=== PATIENT | female | born 1945 | race Caucasian/White ===

== ENCOUNTER 2019-09-11 13:56 | Inpatient (IN) | payer MEDICARE ==
[~2019-09-11] VITALS: Ht 160 cm; Wt 66.2 kg
[~2019-09-11 13:56] MED LIST: AMBEREN; BONIVA150 MG; CALCIUM 600 +1 EAC8
[2019-09-11 14:06] VITALS: BP 188/135
[2019-09-11 14:31] LABS: HEMATOCRIT 53.3 % (37.0-47.0); HEMOGLOBIN 18.1 gm/dL (12.0-15.0); MCH 33.2 pg (26.0-34.0); MCV 97.7 fL (80.0-100.0); NUCLEATED RBCS 0 /100WBC; PLATELET COUNT* 111 thou/uL (150-400); RBC 5.46 mil/uL (4.20-5.00); RDW-CV 15.2 % (10.5-14.5); WBC 8.7 thou/uL (4.0-11.0)
[2019-09-11 14:38] LABS: INR 1.2; PROTIME 12.7 Seconds (9.20-11.50)
[2019-09-11 14:44] LABS: INFLUENZA A ANTIGEN Negative (Negative); INFLUENZA B ANTIGEN Negative (Negative)
[2019-09-11 14:52] LABS: CREATININE 1.1 mg/dL (0.6-1.3); POTASSIUM 4.2 mmol/L (3.5-5.1)
[2019-09-11 14:56] LABS: TOTAL BILIRUBIN 1.2 mg/dL (<0.1-1.0); TOTAL PROTEIN 7.8 g/dL (6.4-8.2)
[2019-09-11 15:00] LABS: ABSOLUTE LYMPHOCYTES 0.7 thou/uL (0.8-5.3); ABSOLUTE MONOCYTES 0.3 thou/uL (0.0-1.2); ABSOLUTE NEUTROPHILS 7.7 thou/uL (1.6-8.1); PLATELET ESTIMATE ADEQUATE
[2019-09-11 15:00] LABS: URINE BLOOD 1+ (Negative); URINE CLARITY CLEAR; URINE COLOR YELLOW; URINE GLUCOSE-RANDOM NEGATIVE (Negative); URINE KETONES 1+ (Negative); URINE LEUKOCYTES-REFLEX NEGATIVE (Negative); URINE NITRITE-REFLEX NEGATIVE (Negative); URINE PROTEIN 2+ (Negative); URINE SPECIFIC GRAVITY >= 1.030 (1.005-1.030); URINE UROBILINOGEN 0.2 E.U./dl (0.2-1.0)
[2019-09-11 15:03] LABS: ICTOTEST (BILI CONFIRMATORY) Negative (Negative); URINE BILIRUBIN 1+ (Negative)
--- NOTE | 2019-09-11 15:12 | EKG ---
[place] [address] ELECTROCARDIOGRAM REPORT Name: FARIBA BLAKE Room: [facility]#: [id number] Admission: 09/11/19 Attend Phys: Discharge: Date of : 43 Report #: [id number] THIS REPORT FOR: //name// [facility] ED Test Date: 2019-09-11 Test Time: 14:11:15 Pat Name: FARIBA BLAKE Department: Room: Gender: F Costume Specialist: RACHELE : 1945 Requested By: Papi Gaona Order Number: [id number] MD: Guicho Lin Measurements Intervals [place] Rate: 99 P: VA: QRS: 5 QRSD: 83 T: -58 QT: 451 QTc: 579 Interpretive Statements Atrial fibrillation Low voltage, precordial leads Probable anteroseptal infarct, old Borderline T abnormalities, inferior leads Prolonged QT interval No previous ECG available for comparison Electronically Signed On 09-11-2019 15:11:52 GUM ROLLING MACHINE TENDER by Guicho Lin [email or web address] <ELECTRONICALLY SIGNED> By: Guicho Lin MD, [facility] 09/11/19 1511 1411 10 Guicho Lin MD, FACC /EPI
[2019-09-11 15:30] LABS: HYALINE CASTS 4-10 Moderate /LPF (None Seen); MUCUS 4-6 Moderate strn/LPF (None Seen); SQUAMOUS >10 Many /LPF (0-3)
[2019-09-11 15:31] LABS: CRYSTALS None Seen /LPF (None Seen); URINE RBC 0-2 Rare /HPF (0-2); URINE WBC-REFLEX 0-5 Rare /HPF (0-5)
[2019-09-11 17:33] VITALS: BP 175/118
[2019-09-11 18:00] VITALS: BP 155/121
[2019-09-11 20:00] VITALS: BP 173/105
[2019-09-11 21:54] LABS: ABSOLUTE BASOPHILS 0.1 thou/uL (0.0-0.2); ABSOLUTE MONOCYTES 0.6 thou/uL (0.0-1.2); ABSOLUTE NEUTROPHILS 6.4 thou/uL (1.6-8.1); BASOPHILS 0.6 %; EOSINOPHILS 0.1 %; HEMATOCRIT 47.7 % (37.0-47.0); LYMPHOCYTES 12.7 %; MCHC 33.8 g/dL (28.0-37.0); MCV 97.8 fL (80.0-100.0); MONOCYTES 7.4 %; MPV 8.5 fl. (7.2-11.1); NUCLEATED RBCS 0 /100WBC; PLATELET COUNT* 98 thou/uL (150-400); POLYS 79.2 %; RBC 4.87 mil/uL (4.20-5.00); RDW-CV 15.2 % (10.5-14.5); WBC 8.1 thou/uL (4.0-11.0)
[2019-09-11 21:56] LABS: HEMOGLOBIN 16.1 gm/dL (12.0-15.0)
[2019-09-11 22:05] LABS: APTT 25.9 Seconds (25.0-31.3); INR 1.2; PROTIME 12.4 Seconds (9.20-11.50)
[2019-09-12] VITALS: BP 147/97
[2019-09-12 03:57] VITALS: BP 126/85
[2019-09-12 04:29] LABS: HEMOGLOBIN 16.1 gm/dL (12.0-15.0); MCH 33.3 pg (26.0-34.0); MCHC 34.2 g/dL (28.0-37.0); MCV 97.3 fL (80.0-100.0); MPV 8.6 fl. (7.2-11.1); RBC 4.83 mil/uL (4.20-5.00); RDW-CV 15.2 % (10.5-14.5); WBC 7.4 thou/uL (4.0-11.0)
[2019-09-12 04:46] LABS: CHOLESTEROL 150 mg/dL (<200); HDL CHOLESTEROL 48 mg/dL (>40); LDL CHOLESTEROL 94 mg/dL (<100); TC:HDL 3.1 Ratio (Not establshd); TRIGLYCERIDE 44 mg/dL (<150); VLDL 9 mg/dL (<40)
[2019-09-12 04:57] LABS: SERUM ASSESSMENT Clear
[2019-09-12 05:03] LABS: CALCIUM 8.1 mg/dL (8.5-10.1); MAGNESIUM 1.6 mg/dL (1.8-2.4); POTASSIUM 3.9 mmol/L (3.5-5.1)
[2019-09-12 08:00] VITALS: BP 135/82
--- NOTE | 2019-09-12 11:14 | CON ---
[address] [address] CONSULTATION Name: FARIBA BLAKE Room: [address] IN M.R.#: [id number] Admission: 09/11/19 Attend Phys: Eric Santana Discharge: Date of : 43 Report #: [id number] THIS REPORT FOR: //name// CC: BEATRIS physician/PCP Jaya Ahuja DATE OF SERVICE: 09/12/2019 CARDIOLOGY CONSULTATION HISTORY OF PRESENT ILLNESS: The patient is a 74-year-old single white female who I was asked to see in the hospital today after she is noted to be in atrial fibrillation. The patient has no previous history of heart disease. She continues to live by herself and care for herself. She states she had a heart attack years ago, but never had stents or bypass surgery. She was doing well until the past several days, she has felt weak. She has noticed a cough. She notes the epigastric discomfort that went into her back. There is no radiation to her arms. Denied any shortness of breath, palpitations, syncope or peripheral edema. She finally went to urgent care at [facility] in [place]. She was noted to be in atrial fibrillation and was admitted for further evaluation and treatment. The patient did not notice any diarrhea or blood in her stool. She denied any palpitations or syncope. No history of heart murmur. PAST MEDICAL HISTORY: She has had previous tonsillectomy. She has chronic back pain. No history of hypertension, diabetes or hyperlipidemia. MEDICATIONS: She is on no medications. ALLERGIES: SHE HAS AN ALLERGY TO PENICILLIN. FAMILY HISTORY: Her grandfather had a heart attack. SOCIAL HISTORY: She is , lives by herself. She uses a cane. Smokes 1/3 of pack of cigarettes a day. No alcohol abuse. REVIEW OF SYSTEMS: No history of stroke, asthma, liver disease, kidney disease, cancer, psychiatric illness or chronic skin condition. PHYSICAL EXAMINATION: GENERAL: Revealed an elderly female lying in bed. She appeared in mild distress secondary to abdominal pain. VITAL SIGNS: She had a blood pressure initially of 170/100, pulse is 130. HEENT: She was anicteric. Conjunctivae are pink. Mucous membranes moist. NECK: Veins are nondistended. No carotid bruits were heard[place] [address] CONSULTATION Name: FARIBA BLAKE Room: [address]#: [id number] Admission: 09/11/19 Attend Phys: Eric Santana Discharge: Date of : 43 Report #: [id number] CHEST: Clear to auscultation. CARDIOVASCULAR: Irregular rhythm. No significant murmur. ABDOMEN: Mildly tender, but soft. EXTREMITIES: Had no edema. Dorsalis pedis pulse cannot be palpated. SKIN: Cool and dry. NEUROLOGIC: Nonfocal. ECG on admission showed atrial fibrillation, controlled ventricular response rate, nonspecific T-wave changes. Her workup in the Emergency Room last night, she had a portable chest x-ray that showed cardiomegaly, tortuous aorta, otherwise unremarkable. She had a CT scan of the abdomen with contrast that showed aneurysmal dilatation of the descending distal thoracic aorta and proximal abdominal aorta with thrombus. There was then complete occlusion of the abdominal aorta at the level of the renal arteries, both of which were patent, reconstitution of flow in the common femoral arteries bilaterally via inferior epigastric arteries suggesting a chronic occlusion. The size of the aorta aneurysm appears to be 3.4 cm. LABORATORY WORK: Sodium 140, creatinine 1.0. Liver function studies were normal. Troponins all 0.06. Cholesterol 150, triglyceride 44, HDL 48, LDL 94. TSH 1.9. White blood cell count 7.4, hemoglobin 16.1. IMPRESSION AND RECOMMENDATIONS: 1. Abdominal pain. Atypical for angina. No acute myocardial infarction. 2. Aneurysmal dilatation of the abdominal aorta. 3. 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 4. Atrial fibrillation. Onset unclear. Currently, the rate is controlled with Cardizem. I would not recommend cardioversion at this time. After the patient has been seen by Vascular Surgery, I would consider anticoagulation. 5. Tobacco abuse. 6. Hypertension. I would recommend starting medication. 7. Chronic back pain. <ELECTRONICALLY SIGNED> By: Guicho Lin MD, [facility] 09/12/19 1114 0814 [id number] Lin MD, FACC /nt
[2019-09-12 12:00] VITALS: BP 145/100
--- NOTE | 2019-09-12 13:01 | 2DMMODE ---
[place] [address] 2 D/M-MODE ECHOCARDIOGRAM Name: FARIBA BLAKE Room: [facility] IN [facility]#: [id number] Admission: 09/11/19 Attend Phys: Eric barger Sa Discharge: Date of : 43 Date of Service: 09/12/19 1300 Report #: [id number] THIS REPORT FOR: //name// ADDENDUM APPROVED REPORT Study performed: 09/12/2019 10:09:20 EXAM: Comprehensive 2D, Doppler, and color-flow Echocardiogram Patient Location: In-Patient Room #: [facility] Status: routine BSA: 1.76 HR: 84 bpm BP: 135/82 mmHg Rhythm: Atrial Fibrillation Other Information Study Quality: Good Indications Atrial Fibrillation 2D Dimensions IVSd: 11.00 (7-11mm) LVOT Diam: 23.11 (18-24mm) LVDd: 46.43 mm PWd: 10.39 (7-11mm) Ascending Ao: 41.10 (22-36mm) LVDs: 31.30 (25-40mm) Aortic Root: 40.13 mm Volumes Left Atrial Volume (Systole) LA ESV Index: 37.50 mL/m2 Aortic Valve AoV Peak Mohan.: 1.28 m/s AO Peak Gr.: 6.59 mmHg LVOT Max P.69 mmHg AO Mean Gr.: 3.72 mmHg LVOT Mean P.87 mmHg LVOT Max V: 0.65 m/s AO V2 VTI: 23.57 cm LVOT Mean V: 0.44 m/s ANDRE (VTI): 2.09 cm2 LVOT V1 VTI: 11.74 cm TDI Medial E' Mohan.: 0.09 m/s Lateral E' Mohan.: 0.11 m/[place] [address] 2 D/M-MODE ECHOCARDIOGRAM Name: FARIBA BLAKE Room: [address] IN .R.#: [id number] Admission: 09/11/19 Attend Phys: Eric barger Sa Discharge: Date of : 43 Date of Service: 09/12/19 1300 Report #: [id number] Pulmonary Valve PV Peak Mohan.: 0.73 m/s PV Peak Gr.: 2.15 mmHg Tricuspid Valve RAP Estimate: 5.00 mmHg TR Peak Gr.: 25.85 mmHg RVSP: 30.00 mmHg PA Pressure: 30.00 mmHg Left Ventricle The left ventricle is normal size. Regional wall motion abnormalities are noted. There is normal left ventricular wall thickness. Left ventricular systolic function is normal. The left ventricular ejection fraction is within the normal range. LVEF is 55-60%. This study is not technically sufficient to allow evaluation of the LV diastolic function due to atrial fibrillation. Right Ventricle The right ventricle is normal size. The right ventricular systolic function is normal. Atria Left atrium is moderately dilated. Right atrium is moderately dilated. Aortic Valve Mild aortic valve sclerosis. No aortic regurgitation is present. There is no aortic valvular stenosis. Mitral Valve The mitral valve is normal in structure. There is no mitral valve regurgitation noted. No evidence of mitral valve stenosis. Tricuspid Valve The tricuspid valve is normal in structure. Mild tricuspid regurgitation. estimated pa pressure 40 mm Hg Pulmonic Valve Pulmonic valve is not well visualized. Trace pulmonic regurgitation. Great Vessels Aortic root is mildly dilated. IVC is normal in size and collapses >50% with inspiration. Pericardium There is no [place] [address] 2 D/M-MODE ECHOCARDIOGRAM Name: FARIBA BLAKE Room: [address] IN .R.#: [id number] Admission: 09/11/19 Attend Phys: Eric barger Discharge: Date of : 43 Date of Service: 09/12/19 [facility] Report #: [id number] <Conclusion> LVEF is 55-60%. Left atrium is moderately dilated. Right atrium is moderately dilated. Mild aortic valve sclerosis. Mild tricuspid regurgitation. estimated pa pressure 40 mm Hg <ELECTRONICALLY SIGNED> By: Guicho Lin MD, FACC 09/12/19 1300 1300 1300 Guicho Lin MD, [facility] /INF
[2019-09-12 16:40] VITALS: BP 152/96
[2019-09-12 20:00] VITALS: BP 146/105
[2019-09-13] VITALS (7 sets, daily range): BP systolic 136–168; BP diastolic 76–106
[2019-09-13 02:07] LABS: GLYCOHEMOGLOBIN (HGB A1C) 5.9 % (4.8-5.6)
[2019-09-13 05:16] LABS: HEMOGLOBIN 15.7 gm/dL (12.0-15.0); MCH 33.3 pg (26.0-34.0); MCHC 34.1 g/dL (28.0-37.0); MCV 97.9 fL (80.0-100.0); MPV 8.5 fl. (7.2-11.1); RBC 4.7 mil/uL (4.20-5.00); RDW-CV 14.7 % (10.5-14.5); WBC 5.8 thou/uL (4.0-11.0)
[2019-09-13 05:24] LABS: ALBUMIN 3.3 g/dL (3.4-5.0); CALCIUM 8.5 mg/dL (8.5-10.1); CREATININE 0.9 mg/dL (0.6-1.3); MAGNESIUM 2.4 mg/dL (1.8-2.4); PHOSPHORUS* 2.7 mg/dL (2.5-4.9); POTASSIUM 3.6 mmol/L (3.5-5.1)
[2019-09-14] VITALS (13 sets, daily range): BP systolic 139–191; BP diastolic 79–111
--- NOTE | 2019-09-14 11:18 | EKG ---
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: ERIKA : 1945 Requested By: Guicho Lin Order Number: [id number] Reading MD: Guicho Lin Measurements Intervals [place] Rate: 80 P: IA: QRS: 67 QRSD: 65 T: 72 QT: 496 QTc: 573 Interpretive Statements Atrial fibrillation Ventricular bigeminy Low voltage, extremity and precordial leads Nonspecific T abnormalities, lateral leads Prolonged QT interval Compared to ECG 09/11/2019 14:11:15 Ventricular premature complex(es) now present Myocardial infarct finding no longer present T-wave abnormality still present Electronically Signed On 09-14-2019 11:17:34 QUALITY ASSURANCE SUPERVISOR CHASSIS by Guicho Lin [email or web address] <ELECTRONICALLY SIGNED> By: Guicho Lin MD, FACC 09/14/19 1117 7 7 Guicho Lin MD, FAC /EPI
--- NOTE | 2019-09-14 14:53 | TEE ---
[place] [address] TRANSESOPHAGEAL ECHOCARDIOGRAM Name: FARIBA BLAKE Room: [address] IN [facility]#: [id number] Admission: 09/11/19 Attend Phys: Eric barger Sa Discharge: Date of : 43 Date of Service: 09/14/19 1452 Report #: [id number] THIS REPORT FOR: //name// APPROVED REPORT Study performed: 09/14/2019 13:50:16 EXAM: Transesophageal Echocardiogram Patient Location: In-Patient Room #: [facility] Status: routine BSA: 1.77 HR: 95 bpm BP: 142/100 mmHg Rhythm: Atrial Fibrillation Other Information Study Quality: Good Indications Atrial Fibrillation Echo Enhancing Agent Indication: Rule out Shunt Agent(s) / Amount(s) Used: Agitated Saline 20 cc Comments: 2 Bubble studies Procedure After obtaining informed consent, patient underwent transesophageal echo in the [employer]. Type of Sedation : Conscious Sedation Sedation was administered by Jocelyn Cummins. Sedation start time: 1416 Case end Time: 1432 Sedation was achieved intravenously with: Versed (4) Fentanyl (50) Transesophageal probe was inserted and advanced into esophagus without difficulty by Guicho Lin MD, FACC. Echo enhancement indication: R/O Septal defect. Echo enhancement agent administered: Agitated Saline The MARCO was performed without complications. Synchronized Cardioversion attempted: Successful Synchronized Cardioversion acheived with 200 Joules after 1 attempt(s). Rhythm following Synchronized Cardioversion: Normal Sinus Rhythm Throughout the procedure, the blood pressure, pulse oximetry, [place] [address] TRANSESOPHAGEAL ECHOCARDIOGRAM Name: FARIBA BLAKE Room: [address] IN [facility]#: [id number] Admission: 09/11/19 Attend Phys: Eric barger Sa Discharge: Date of : 43 Date of Service: 09/14/19 1452 Report #: [id number] rhythm, and rate were monitored. The patient tolerated the procedure without adverse effects. Recovery from conscious sedation was uneventful and vital signs were stable. Left Ventricle The left ventricle is normal size. There is normal LV segmental wall motion. There is normal left ventricular wall thickness. Left ventricular systolic function is normal. The left ventricular ejection fraction is within the normal range. LVEF is 55-60%. Right Ventricle The right ventricle is normal size. The right ventricular systolic function is normal. Atria Left atrium is dilated. No thrombus is visualized in the left atrium or appendage. Interatrial septum is intact without evidence of ASD or PFO. The right atrium size is normal. Aortic Valve The aortic valve is normal in structure. Trace aortic regurgitation. There is no aortic valvular stenosis. Mitral Valve The mitral valve is normal in structure. Trace mitral regurgitation. No evidence of mitral valve stenosis. Tricuspid Valve The tricuspid valve is normal in structure. Trace tricuspid regurgitation. Pulmonic Valve The pulmonary valve is normal in structure. There is no pulmonic valvular regurgitation. Great Vessels The aortic root is normal in size. Pericardium There is no pericardial effusion. <Conclusion> LVEF is 55-60%. Left atrium is dilated. No thrombus is visualized [place] [address] TRANSESOPHAGEAL ECHOCARDIOGRAM Name: FARIBA BLAKE Room: [address] IN ..#: [id number] Admission: 09/11/19 Attend Phys: Eric barger Sa Discharge: Date of : 43 Date of Service: 09/14/191451 Report #: [id number] appendage. Interatrial septum is intact without evidence of ASD or PFO. successful cardioversion from atrial fibrillation to normal sinus rhythm <ELECTRONICALLY SIGNED> By: Guicho Lin MD, FACC 09/14/191451 51 51 Guicho Lin MD, FACC /INF
[2019-09-15] VITALS (8 sets, daily range): BP systolic 126–188; BP diastolic 77–108
[2019-09-15 12:29] LABS: CALCIUM 8.5 mg/dL (8.5-10.1)
[2019-09-15 12:40] LABS: TOTAL BILIRUBIN 1.8 mg/dL (<0.1-1.0); TOTAL PROTEIN 6.6 g/dL (6.4-8.2)
[2019-09-16 00:08] VITALS: BP 111/71
[2019-09-16 03:54] VITALS: BP 134/83
[2019-09-16 05:21] LABS: HEMATOCRIT 45.2 % (37.0-47.0); HEMOGLOBIN 15.6 gm/dL (12.0-15.0); MCH 33.4 pg (26.0-34.0); MCHC 34.5 g/dL (28.0-37.0); MCV 96.6 fL (80.0-100.0); MPV 9.2 fl. (7.2-11.1); RBC 4.68 mil/uL (4.20-5.00); RDW-CV 14.7 % (10.5-14.5); WBC 8.1 thou/uL (4.0-11.0)
[2019-09-16 05:34] LABS: ALBUMIN 2.7 g/dL (3.4-5.0); DIRECT BILIRUBIN 0.5 mg/dL (<0.1-0.3); POTASSIUM 3.1 mmol/L (3.5-5.1); TOTAL BILIRUBIN 1.4 mg/dL (<0.1-1.0); TOTAL PROTEIN 5.6 g/dL (6.4-8.2)
[2019-09-16 08:00] VITALS: BP 115/68
--- NOTE | 2019-09-16 09:28 | CON ---
[address] [address] CONSULTATION Name: FARIBA BLAKE Room: [address] IN M.R.#: [id number] Admission: 09/11/19 Attend Phys: Eric Santana Discharge: Date of : 43 Report #: [id number] THIS REPORT FOR: //name// CC: BEATRIS physician/PCP Eric Ahuja DICTATED BY: Nara MELENDEZP DATE OF SERVICE: 09/12/2019 The patient does not have a PCP. REASON FOR CONSULTATION: Abdominal pain, nausea, vomiting and weight loss. Please note at the time of this dictation, the patient was seen and physically examined by myself. HISTORY OF PRESENT ILLNESS: This is a 74-year-old female, who has a great aversion against medical information specialist and has not seen a provider in many years. She initially in the coaxing and encouragement of her neighbor friend, she went to [facility] or at [facility] and she was instructed that she needed to come to the Emergency Room. Upon arrival at the Emergency Room, she had an elevated blood pressure. She was in rapid atrial fib. She was started on a Cardizem drip and heparin drip. However, the patient was completely asymptomatic during that time. The patient states she has had chronic nausea and vomiting for greater than a year and she has lost weight. She is unable to tell me how much weight she lost. Her neighbor states that her clothes are very baggy on her, so it is hard to depict. Currently she weighs 160 pounds or 73 kilos. Her friend thinks probably she has been 170-180 before, but she is not very good at distinguishing this. She states her friend has never mentioned anything about any bright red blood or coffee-ground emesis associated with her nausea and vomiting. She does complain of some dysphagia that can be intermittent that she does not quantify with either solid or liquid substance. She denies any acid reflux that she is aware of at this time. She does have intermittent abdominal pain, which she complains of in her left upper quadrant area that will radiate into her back. At the present time, she is not having any of that. Her friend does reiterate that at times she may not have eaten very much. It is hard to tell as to how often her vomiting occurs. Her friend feels that it is more on a daily basis; however, the patient tells me it is maybe about once a week. She has never had any endoscopic upper or lower scopes done. She states her bowels move daily, soft and formed and she has not noticed any black or bright red bloody stools. PAST MEDICAL HISTORY: She had an MN 15 years ago, currently atrial fib. PAST SURGICAL HISTORY: She had a [place]omy [place] [address] CONSULTATION Name: FARIBA BLAKE Room: [address] IN M.R.#: [id number] Admission: 09/11/19 Attend Phys: Eric Santana Discharge: Date of : 43 Report #: [id number] FAMILY HISTORY: Father, pancreatic cancer. Maternal aunts, breast cancer. SOCIAL HISTORY: She lives alone. Denies any alcohol use. She smokes a third a pack of cigarettes a day and has done that most of her life and denies any illegal drug use. REVIEW OF SYSTEMS: Twelve-point review of systems is essentially negative except what is mentioned in the HPI. PHYSICAL EXAMINATION: VITAL SIGNS: Temperature 36.7, pulse 67, respirations 18, blood pressure 135/82. HEART: Irregular rate and rhythm. LUNGS: Diminished, but clear. ABDOMEN: Soft, positive bowel sounds in all 4 quadrants with no masses or tenderness noted. LABORATORY DATA: Hemoglobin 16.1, white count 7.4, platelets 102. PTT was 117.9, INR was 1.2. PT was 12.4. BUN was 20, creatinine is 1 with GFR of 54. CT of the abdomen and pelvis was essentially negative. Did show aneurysmal dilatation of the distal descending thoracic aorta and proximal abdominal aorta containing a large amount of mural thrombus with complete occlusion of the abdominal aorta at the level of the renal arteries, both of which are patent. Otherwise, negative for any GI or female issues. IMPRESSION: 1. Nausea and vomiting, recurrent. 2. Weight loss. 3. Abdominal pain, left upper quadrant that is intermittent and off and on. 4. Dysphagia, both with often intermittently. 5. Thrombocytopenia. 6. Chronic kidney disease. 7. Family history of father with pancreatic cancer and maternal aunts, breast. 8. Anticoagulant therapy, atrial fibrillation, heparin. PLAN: 1. EGD tomorrow with Dr. Alarcon. 2. Heparin drip will need to be discontinued a couple hours prior to procedure with a PTT prior to the procedure. 3. Further recommendations to be made once [place] [address] CONSULTATION Name: FARIBA BLAKE Room: M.212-P ADM IN M.R.#: [id number] Admission: 09/11/19 Attend Phys: Eric Santana Discharge: Date of : 43 Report #: [id number] Thank you for allowing us to participate in this patient's care. Please do not hesitate to call with any questions in regard to this consult. <ELECTRONICALLY SIGNED> By: Pierre Alarcon DO 09/16/19 0928 1251 0046Pierre Alarcon DO /nt
[2019-09-16 13:34] LABS: CALCIUM 8.4 mg/dL (8.5-10.1); CREATININE 1.1 mg/dL (0.6-1.3)
[2019-09-16 16:08] VITALS: BP 129/96
[2019-09-17] VITALS: BP 147/95
[2019-09-17 03:31] VITALS: BP 145/71
[2019-09-17 06:12] LABS: CALCIUM 8.8 mg/dL (8.5-10.1); CREATININE 0.9 mg/dL (0.6-1.3); POTASSIUM 3.8 mmol/L (3.5-5.1); TOTAL BILIRUBIN 1.4 mg/dL (<0.1-1.0); TOTAL PROTEIN 6.9 g/dL (6.4-8.2)
[2019-09-17 08:00] VITALS: BP 182/87
[2019-09-17 12:15] VITALS: BP 169/86
[2019-09-17] MEDS ORDERED: SORINE 80 MG TA80 MG PO (12:58)
[2019-09-17] MEDS ORDERED: ELIQUIS5 MG PO (12:59)
[2019-09-17] MEDS ORDERED: PROTONIX40 M2 PO (13:00)
[2019-09-17 13:01] VITALS: BP 169/86
--- NOTE | 2019-09-17 17:14 | EKG ---
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: : 1945 Requested By: Melinda Mckenna Order Number: [id number] Reading MD: Marko Curiel Measurements Intervals [place] Rate: 54 P: 45 NM: 185 QRS: 18 QRSD: 119 T: 54 QT: 447 QTc: 424 Interpretive Statements Sinus rhythm Atrial premature complex ow voltage, extremity leads Compared to ECG 09/14/2019 07:18:33 Atrial premature complex(es) now present Atrial fibrillation no longer present Ventricular premature complex(es) no longer present T-wave abnormality no longer present Prolonged QT interval no longer present Electronically Signed On 09-17-2019 17:13:40 COFFEE WEIGHER by Marko Curiel [email or web address] <ELECTRONICALLY SIGNED> By: Marko Curiel MD, FACC 09/17/19 1713 1113 1113 Marko Curiel MD, FACC /EPI
== END 2019-09-17 18:10 | DRG 309 ==
LOC: M.ERS 13:56 → M.2W 16:47 → M.TBA-ER 16:47 → M.2W 17:42
PROVIDERS: Family Medicine; Internal Medicine; ADMIT Family Medicine
PROC: 0DJ08ZZ Inspection of Upper Intestinal Tract, Via Natural or Artificial Opening Endoscopic (ICD-10-PCS; principal; 2019-09-13)
PROC: B246ZZ4 Ultrasonography of Right and Left Heart, Transesophageal (ICD-10-PCS; 2019-09-14)
PROC: 5A2204Z Restoration of Cardiac Rhythm, Single (ICD-10-PCS; 2019-09-14)
DX: I48.0 Paroxysmal atrial fibrillation (principal); D68.59 Other primary thrombophilia; I74.09 Other arterial embolism and thrombosis of abdominal aorta; I70.92 Chronic total occlusion of artery of the extremities; I74.5 Embolism and thrombosis of iliac artery; I71.4 Abdominal aortic aneurysm, without rupture; F17.210 Nicotine dependence, cigarettes, uncomplicated; I71.2 Thoracic aortic aneurysm, without rupture; R63.4 Abnormal weight loss; I10 Essential (primary) hypertension; H35.30 Unspecified macular degeneration; M54.9 Dorsalgia, unspecified; G89.29 Other chronic pain; R13.10 Dysphagia, unspecified; D69.6 Thrombocytopenia, unspecified; N18.9 Chronic kidney disease, unspecified; K86.89 Other specified diseases of pancreas; K80.20 Calculus of gallbladder without cholecystitis without obstruction; E80.6 Other disorders of bilirubin metabolism; E87.6 Hypokalemia; F03.90 Unspecified dementia, unspecified severity, without behavioral disturbance, psychotic disturbance, mood disturbance, and anxiety; I25.10 Atherosclerotic heart disease of native coronary artery without angina pectoris; I25.2 Old myocardial infarction; Z88.0 Allergy status to penicillin; Z80.3 Family history of malignant neoplasm of breast; Z68.25 Body mass index [BMI] 25.0-25.9, adult; Z79.01 Long term (current) use of anticoagulants

== ENCOUNTER 2019-09-17 13:25 | Inpatient (IN) | payer MEDICARE ==
[~2019-09-17] VITALS: Ht 160 cm; Wt 69.9 kg
[~2019-09-17 13:25] MED LIST changes: +ELIQUIS5 MG PO; +PROTONIX40 M2 PO; +SORINE 80 MG TA80 MG PO
[2019-09-17 18:43] VITALS: BP 152/86
[2019-09-17 19:19] VITALS: BP 146/76
--- NOTE | 2019-09-18 04:44 | NUR ---
ASSUMED PT CARE AT 1930. ADMISSION DATABASE COMPLETED. PT IS ALERT AND ORIENTED, FORGETFUL. UP NUMEROUS TIMES OVERNIGHT TO VOID. PT UNSTEADY IN BATHROOM REQUIRING CLOSE SUPERVISION TO PREVENT FALL. PT TAKES PILLS WHOLE WITH WATER WITHOUT DIFFICULTY. VSS. CONFUSED AT TIMES, GETTING OUT OF BED SETTING OFF BED ALARM. BED ALARM ON FOR SAFETY. HOURLY ROUNDING IN PROGRESS, WILL CONTINUE TO MONITOR.
[2019-09-18 05:52] LABS: HEMATOCRIT 45.5 % (37.0-47.0); HEMOGLOBIN 15.5 gm/dL (12.0-15.0); MCH 32.8 pg (26.0-34.0); MCHC 34.1 g/dL (28.0-37.0); MCV 96.1 fL (80.0-100.0); MPV 8.6 fl. (7.2-11.1); RBC 4.73 mil/uL (4.20-5.00); RDW-CV 14.6 % (10.5-14.5); WBC 6.4 thou/uL (4.0-11.0)
[2019-09-18 06:15] LABS: CALCIUM 8.5 mg/dL (8.5-10.1); CREATININE 0.8 mg/dL (0.6-1.3); POTASSIUM 3.8 mmol/L (3.5-5.1)
[2019-09-18 07:36] VITALS: BP 149/87
--- NOTE | 2019-09-18 14:07 | NUR ---
NUTRITION: CONSULT/NEW ADMIT. PT SEEN AFTER LUNCH, WAS SLEEPING. PT WAS NOT ABLE TO ANSWER QUESTIONS VERY CLEARLY AT THIS TIME. DID REPORT DECREASED APPETITE/INTAKE AND DID NOT FEEL SHE WAS EATING ENOUGH. NO INTAKE RECORDS. PT AGREED TO TRY ENSURE. DID NOT KNOW UBW. MEDS REVIEWED. ALBUMIN 3.O. ASSESS AT LOW-MILD NUTRITION RISK AT THIS TIME.
--- NOTE | 2019-09-18 16:57 | NUR ---
SW met with pt to complete initial assessment, introduce self, and SW role on inpt rehab unit. Pt lived at home alone and dc plan could be for pt to move in with pt son in [place] at dc if needed. Pt has cane but may need RW at dc. Pt preference of [facility] . SW provided wecome folder and pt sigend irf shantel consent form, on pt chart. SW to continue to follow to assist with safe dc planning.
--- NOTE | 2019-09-18 17:00 | NUR ---
ALERT AND ORIENTED X4 BUT FORGETFUL AT TIMES. UP WITH 1 ASSIST, GAIT BELT AND WALKER. NO C/O PAIN. IV D/C WITHOUT DIFFICULTY. PARTICIPATED WITH THERAPIES. CALL LIGHT WITHIN REACH. BED AND CHAIR ALARM IN PLACE.
[2019-09-18 19:50] VITALS: BP 157/82
--- NOTE | 2019-09-19 05:05 | NUR ---
ASSUMED CARES AT 1920. ALERT AND ORIENTED X 3. FORGETFUL AT TIMES. IMPULSIVE. MIN ASSIST WITH GAIT BELT AND WALKER. UP TO BATHROOM. AT 0100, PT C/O CHEST PAIN "FEELING LIKE HEART BEING SQUEEZED". PAIN COMES AND GOES. EKG SHOWED NSR. VITALS WNL. PT INITIALLY FELT IT WAS HEART PAIN BUT THEN WHEN QUESTIONED AGAIN PT STATED THAT PAIN WAS EPIGASTIC RADIATING TO LEFT BREAST. PAGED DR WAGONER. NEW ORDER FOR NITRO AND ASA. BOTH GIVEN. PT RESTING AT THIS TIME. CALL LIGHT IN REACH AND BED ALARM ON.
[2019-09-19 07:29] VITALS: BP 130/75
--- NOTE | 2019-09-19 15:02 | EKG ---
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: : 1945 Requested By: Morgan Man Order Number: [id number] Eduardo MD: David Mcclellan Measurements Intervals [place] Rate: 51 P: 34 TN: 183 QRS: 12 QRSD: 93 T: 85 QT: 448 QTc: 413 Interpretive Statements Sinus rhythm Borderline low voltage, extremity leads Compared to ECG 09/17/2019 11:13:07 Atrial premature complex(es) no longer present Electronically Signed On 09-19-2019 15:02:11 RECORDS AND INFORMATION MANAGER by David Mcclellan [email or web address] <ELECTRONICALLY SIGNED> By: David Mcclellan MD, [facility] 09/19/19 1502 0058 David Mcclellan MD, FAC /EPI
--- NOTE | 2019-09-19 15:59 | NUR ---
GOLD and Dr Ty met with pt to review team conference summary and plan for pt to remain on rehab unit with team to reassess pt length of stay during team conference next Tuesday. Pt okay with plan. GOLD met with pt and pt friend/neighbor Ria Altamirano (not Marge that was entered but not actually her name). Pt friend wanted pt to be able to look into [facility] that pt friend claims is not the same as Medicaid; GOLD said that SW would contact [facility] to speak with pt/friend to evaluate possibilities. Pt friend also wondered about pt being able to receive order for grab bars to be installed so that pt could present to the office of pt hud housing apts. SW to continue to follow to assist with safe dc planning.
--- NOTE | 2019-09-19 17:26 | NUR ---
ALERT AND ORIENTED X4. UP WITH STAND BY ASSIST, GAIT BELT AND WALKER. NO C/O PAIN. USES CALLLIGHT APROXIMATELY 50% OF TIME. FALL PRECAUTIONS IN PLACE WITH BED ALARM AND CHAIR ALARM. RASH ON LEFT LEG GONE. NO C/O ITCHING OR REDNESS. NO C/O ANY CHEST PAIN TODAY. PARTICIPATED WITH THERAPIES. CONTINENT OF BOWEL AND BLADDER. CALL LIGHT WITHIN REACH.
[2019-09-19 19:58] VITALS: BP 128/72
--- NOTE | 2019-09-19 23:47 | NUR ---
ASSUMED CARE AT 1930. PATIENT RESTING IN BED WITH BED ALARM ON. SETS OFF ALARM OFTEN SHE FORGETS TO USE CALL LITE. IN ROOM 320, CLOSEST TO NURSE STATION. UP WITH SBA, GAIT BELT, WALKER. VOIDS PER TOILET, NEEDS CUEING FOR SEQUENCING. TAKES PILLS WHOLE WITH WATER. TURNS SELF VERY EASILY. NO C/O ITCHING OR RASH NOTED. DENIES CHEST PAIN. HOURLY ROUNDS CONTINUE. BED ALARM ON. CALL LITE IN REACH.
--- NOTE | 2019-09-20 06:15 | NUR ---
SLEPT BETWEEN VOIDINGS. VOIDED 8 TIMES THIS SHIFT. EVERY TIME SHE SET OFF BED ALARM RATHER THAN USING CALL LITE. UP WITH SBA, GAIT BELT, WALKER. PREFERS SHOES TO GRIPPER SOCKS FOR AMBULATION. TURNS SELF. NO C/O PAIN. HOURLY ROUNDS CONTINUE. BED ALARM ON. CALL LITE IN REACH.
[2019-09-20 07:30] VITALS: BP 204/96
[2019-09-20 08:00] VITALS: BP 124/74
--- NOTE | 2019-09-20 15:58 | NUR ---
pt ambulates with walker and gaitbelt and min assist of 1. bed and chair alarms used as pt does not remember to call for assist. pt eats lunch in dinningroom. pt has been continent of bladder and bowel and able to cleanse self and adjust clothing,
[2019-09-20 20:05] VITALS: BP 166/84
[2019-09-21 04:54] LABS: CALCIUM 8.6 mg/dL (8.5-10.1); POTASSIUM 3.9 mmol/L (3.5-5.1)
--- NOTE | 2019-09-21 04:54 | NUR ---
ASSUMED PT CARE AT 1930. PT AWAKE AND ALERT. PT SET OFF BED ALARM NUMEROUS TIMES OVERNIGHT GETTING OUT OF BED TO VOID. UP WITH SBA, GAIT BELT AND WALKER. TAKES PILLS WHOLE WITH WATER WITHOUT DIFFICULTY. CAN TURN SELF EASILY IN BED. NO C/O PAIN, ITCHING OR RASH. CALL LIGHT IN REACH. BED ALARM ON FOR SAFETY. HOURLY ROUNDING IN PROGRESS, WILL CONTINUE TO MONITOR.
[2019-09-21 08:18] VITALS: BP 148/87
--- NOTE | 2019-09-21 11:59 | NUR ---
I have reviewed the documentation by GERALDINE LONGO from 09/21/19 to 09/21/19 and I concur with it. KELLI MOORE
--- NOTE | 2019-09-21 15:47 | NUR ---
PT REMINDED TO CALL FOR ASSIST WITH AMBULATION AND IS STILL IMPULSIVE. BED AND CHAIR ALARMS IN USE. PT AMBULATES WITH SBA GAITBELT AND WALKER.PT EATS LUNCH IN DINNINGROOM.PT CONFUSED MOST OF TIME AND FORGETFULL PT REMAINS CONTINENT OF B+B.
[2019-09-21 19:55] VITALS: BP 178/81
--- NOTE | 2019-09-21 21:38 | NUR ---
ASSUMED CARE AT 1930. PATIENT RESTING IN CHAIR. APPROPRIATELY USED CALL LITE ONCE TO REQUEST GETTING READY FOR BED. CHANGED INTO NIGHT CLOTHES INDEPEND. UP TO TOILET TO VOID, GAIT BELT, WALKER, SBA. CONTINENT OF B/B. TAKES PILLS WHOLE WITH WATER. GIVEN APAP AT HS FOR GENERALIZED PAIN. TURNS SELF. CALL LITE IN REACH. BED ALARM ON. HOURLY ROUNDS CONTINUE.
--- NOTE | 2019-09-22 06:02 | NUR ---
SLEPT MOST OF THE SHIFT. TURNED SELF. USED CALL LITE APPROPRIATELY THREE TIMES TO ASK TO VOID. HAD BM PER TOILET AT THIS TIME. DENIES PAIN. HOURLY ROUNDS CONTINUE. BED ALARM ON. CALL LITE IN REACH.
[2019-09-22 07:55] VITALS: BP 148/81
--- NOTE | 2019-09-22 16:19 | NUR ---
ALERT AND ORIENTED X4 BUT FORGETFUL AT TIMES. UP WITH STAND BY ASSIST, GAIT BELT AND WALKER. FORGETS AT TIMES TO USE CALL LIGHT AND WILL SET OFF BED AND CHAIR ALARM. CONTINENT OF BOWEL AND BLADDER. CALL LIGHT WITHIN REACH. FALL PRECAUTIONS IN PLACE. PROGRESSING TOWARD DISCHARGE GOAL.
[2019-09-22 19:30] VITALS: BP 145/69
--- NOTE | 2019-09-23 05:17 | NUR ---
ASSUMED CARE AT 1920. ALERT. FORGETFUL AT TIMES. OCCASIONALLY STILL DOES NOT CALL WHEN GETTING UP. SBA WITH GAIT BELT AND WALKER. UP TO BATHROOM. DENIED ANY NEED FOR PAIN MEDS. SLEPT WELL OTHERWISE. CALL LIGHT IN REACH AND BED ALARM ON.
[2019-09-23 07:46] VITALS: BP 150/89
--- NOTE | 2019-09-23 13:37 | NUR ---
ASSUMED CARE AT 0730. ALERT ORIENTED X 1-2 HX OF DEBILITY. TRANSFERS WITH SBA G BELT WALKER. AMBULATES TO BR TO VOID AND HAD A BM EARLY A.M. WEARS PULLUPS ABLE TO DO CLOTHING ADJUSTMENTS AND HYGEINE. USES CALL LIGHT APPROPRIATELY FOR ASSIST. TAKES MEDS WITHOUT DIFFICULTY. FEEDS SELF. DENIES PAIN OR CONCERNS. BED CHAIR ALARM FOR PT. SAFETY. UP IN RECLINER TODAY MUCH OF THE TIME.
[2019-09-23 19:15] VITALS: BP 123/94
--- NOTE | 2019-09-24 05:16 | NUR ---
ASSUMED CARES AT 1920. ALERT AND ORIETNED X 3. FORGETFUL AT TIMES. DENIED ANY PAIN. SBA WITH GAIT BELT AND WALKER. UP TO BATHROOM. IMPULSIVE AT TIMES. SLEPT MOST OF THE NIGHT. CALL LIGHT IN REACH. BED ALARM ON.
[2019-09-24 07:43] VITALS: BP 177/91
--- NOTE | 2019-09-24 13:59 | NUR ---
SW called pt son in preparation for team conference Tuesday to discuss safe dc planning and discuss any questions or concerns from the pt son. Pt son said that an apt close to pt son might be an option but that pt is on a waiting list for HUD/Section 8 housing. SW explained team's recommendation for pt to have 24/7 supervision at dc; pt son said that he will speak with pt about dc needs as well. SW to continue to follow to assist with safe dc planning.
--- NOTE | 2019-09-24 16:47 | NUR ---
ALERT AND ORIENTED X4 WITH OCCASSIONAL FORGETFULNESS. WILL USE CALL LIGHT ABOUT 50% OF THE TIME. WILL GET UP AND THEN SHUT OFF CHAIR ALARM AT TIMES. HAS BEEN INSTRUCTED TO NOT SHUT OFF ALARM BUT STILL DOES AT TIMES. UP WITH 1 ASSIST GAIT BELT AND WALKER. NO C/O PAIN. CONTINENT OF BOWEL AND BLADDER. CALL LIGHT WITHIN REACH. FALL PRECAUTIONS IN PLACE. BED ALARM AND CHAIR ALARM USED. PROGRESSING TOWARD DISCHARGE GOAL.
[2019-09-24 19:30] VITALS: BP 141/87
--- NOTE | 2019-09-25 05:28 | NUR ---
ASSUMED CARES AT 1920. ALERT AND ORIENTED. CAN BE IMPULSIVE AT TIMES. SBA WITH GAIT BELT AND WALKER. DENIED ANY PAIN. UP TO BATHROOM. SLEPT WELL MOST OF THE NIGHT. NO ISSUES. CALL LIGHT IN REACH AND BED ALARM ON.
[2019-09-25 08:00] VITALS: BP 150/87
--- NOTE | 2019-09-25 17:01 | NUR ---
PT FORGETS TO USE CALL LIGHT TO CALL FOR ASSIST WITH AMBULATION. IS REMINDED TO USE WALKER WHEN ASSISTED TO BATHROOM. AMBULATES WITH SBA TO DINNINGROOM FOR MEALS.PT IS CONTINENT OF B+B. BED AND CHAIR ALARMS IN USE.
[2019-09-25 18:23] VITALS: BP 150/87; BP 151/91
[2019-09-25 19:55] VITALS: BP 119/92
--- NOTE | 2019-09-25 19:55 | NUR ---
SITTING UP IN RECLINER WATCHING TV. DENIES DISCOMFORT. PATIENT TURNED CHAIR ALARM OFF AND WENT TO THE BATHROOM WITHOUT A WALKER AND WITHOUT CALLING FOR ASSIST. REMINDED PATIENT OF SAFETY FACTOR AND ADVISED HER TO PUT HER YELLOW SOCKS AND TO CALL FOR HELP. CALL LIGHT WITHIN REACH.
--- NOTE | 2019-09-26 05:05 | NUR ---
TRANSFERRED SELF FROM RECLINER TO BED WITHOUT CALLING FOR ASSIST THEN PUT HER CALL LIGHT TO HAVE HER BEDRAILS PUT UP. UP X 2 DURING THE NIGHT TO THE BATHROOM TO VOID. USED CALL LIGHT DURING THE NIGHT APPROPRIATELY. HOURLY ROUNDING IN PROGRESS.
[2019-09-26 07:27] VITALS: BP 151/91
--- NOTE | 2019-09-26 15:52 | NUR ---
GOLD and Dr Ty met with pt to review team conference summary and plan for pt to dc on Tuesday to SNF for continued therapies as pt is not yet mod i to indpendent with all mobility and ADL and cognitive tasks. Pt said okay and then pt nurse informed SW that pt said she was dc today and to have her medicines ready. SW met with pt again and clarified that pt remains on ARU until Tuesday and then dc to SNF. Pt said okay again and then OT informed SW that pt was upset with dc disposition. SW called pt son Anmol and informed of team's recommendations and pt son in agreement with plan. Pt/family to inform SW of SNF preferences and SW to continue to follow to assist with safe dc planning/SNF placement.
[2019-09-26 19:00] VITALS: BP 156/85
--- NOTE | 2019-09-26 20:15 | NUR ---
AWAKENED FOR HS REASSESSMENT AND MEDICATION PASS. DENIES DISCOMFORT. TOOK MEDICATIONS WHOLE WITH WATER. CALL LIGHT WITHIN REACH.
[2019-09-27 03:59] LABS: HEMATOCRIT 40.6 % (37.0-47.0); HEMOGLOBIN 13.8 gm/dL (12.0-15.0); MCH 32.9 pg (26.0-34.0); MCV 96.7 fL (80.0-100.0); MPV 7.9 fl. (7.2-11.1); RBC 4.2 mil/uL (4.20-5.00); RDW-CV 14.3 % (10.5-14.5); WBC 6.6 thou/uL (4.0-11.0)
[2019-09-27 04:18] LABS: ALBUMIN 2.5 g/dL (3.4-5.0); CALCIUM 8.3 mg/dL (8.5-10.1); CREATININE 0.9 mg/dL (0.6-1.3); MAGNESIUM 1.8 mg/dL (1.8-2.4); TOTAL BILIRUBIN 0.4 mg/dL (<0.1-1.0); TOTAL PROTEIN 6.3 g/dL (6.4-8.2)
--- NOTE | 2019-09-27 05:12 | NUR ---
UP X TWO DURING THE NIGHT TO THE BATHROOM TO VOID. HOURLY ROUNDING IN PROGRESS.
[2019-09-27 07:49] VITALS: BP 147/70
--- NOTE | 2019-09-27 10:19 | NUR ---
GOLD faxed referral for SNF to pt/family of [facility] [phone] fax [phone]. Plan for SNF dc on Thursday 09/28. SW to continue to follow to assist with safe dc planning/placement.
[2019-09-27 20:05] VITALS: BP 129/82
--- NOTE | 2019-09-28 05:06 | NUR ---
ASSUMED PT CARE AT 193O. PT ALERT AND ORIENTED TO SELF, POLITE AND COOPERATIVE WITH CARES. PT SITTING UP IN CHAIR AT SHIFT CHANGE, PM MEDICATIONS GIVEN WHOLE WITH WATER WITHOUT DIFFICULTY. PT SLEPT WELL OVERNIGHT, UP MULTIPLE TIMES TO BATHROOM TO VOID, SETTING OFF BED ALARM IN THE PROCESS. NO STOOL THIS SHIFT. PT TO DISHCARGE TO SNF TODAY. BED ALARM ON FOR SAFETY, HOURLY ROUNDING IN PROGRESS, WILL CONTINUE TO MONITOR.
[2019-09-28 07:50] VITALS: BP 151/91
[2019-09-28] MEDS ORDERED: ASA81BEC PO (13:48)
--- NOTE | 2019-09-28 14:26 | NUR ---
PT READY TO DISCHARGE WITH SON TO GO TO ALF. SON IS GIVEN ALL PAPERWORK AND PT'S BELONGINGS.PT ALERT AND ORIENTATED TO EVENTS.
--- NOTE | 2019-09-28 14:40 | NUR ---
Pt dc to SNF today; pt son providing pt transportation. SW faxed final paperwork, dc summary and orders to [facility]. [phone] fax [phone]
--- NOTE | 2019-09-28 17:32 | NUR ---
report was called to nursing facility in [place] at [phone]. nurse stated pt was not going to be admitted untill tuesday.son was called and message left that pt would need medications. son was given scripts for medications and has 30day sample of eloquis.
== END 2019-09-28 14:39 | DRG 947 ==
LOC: M.REH 13:25
PROVIDERS: Family Medicine; Internal Medicine; ADMIT Physical Medicine & Rehabilitation
DX: R53.81 Other malaise (principal); I71.3 Abdominal aortic aneurysm, ruptured; D68.69 Other thrombophilia; I74.10 Embolism and thrombosis of unspecified parts of aorta; I48.0 Paroxysmal atrial fibrillation; I71.2 Thoracic aortic aneurysm, without rupture; I10 Essential (primary) hypertension; I25.10 Atherosclerotic heart disease of native coronary artery without angina pectoris; G89.29 Other chronic pain; M54.9 Dorsalgia, unspecified; F03.90 Unspecified dementia, unspecified severity, without behavioral disturbance, psychotic disturbance, mood disturbance, and anxiety; H35.30 Unspecified macular degeneration; F17.210 Nicotine dependence, cigarettes, uncomplicated; R63.4 Abnormal weight loss; Z68.27 Body mass index [BMI] 27.0-27.9, adult; I25.2 Old myocardial infarction; Z88.0 Allergy status to penicillin; Z80.0 Family history of malignant neoplasm of digestive organs; Z80.3 Family history of malignant neoplasm of breast; Z79.82 Long term (current) use of aspirin; Z79.899 Other long term (current) drug therapy